=== PATIENT | female | born 1925 | race Caucasian/White ===

== ENCOUNTER 2016-08-02 12:08 | Emergency (ER) | payer MEDICARE, OTHER ==
[~2016-08-02] VITALS: Ht 167.6 cm; Wt 60.0 kg
[~2016-08-02 12:08] MED LIST: ATENOLOL25 MG OR; BACTRIM DS1 TAB PO; BAYER LOW81 MG OR; BUMETANIDE1 MG PO; CIPRO500 MG OR; ECOTRIN LOW STR81 MG PO; ECOTRIN325 MG OR; FLAGYL500 MG OR; FLEXERIL OR; KEFLEX500 M1 PO; MILK OF MAG30 ML/UDC PO; NITROFUR MAC100 MG OR; OS CAL OR; OS-CAL 500+D OR; OS-CAL 500500 MG OR; PROTONIX40 M2 PO; PROZAC20 MG OR; ULTRAM50 M1 PO; VANCOMYCIN1000 MG IV; VIGAMOX OU; XANAX0.5 MG OR
[2016-08-02] MEDS ORDERED: PANTOPRAZOLE SO40 MG PO (12:25)
[2016-08-02] MEDS ORDERED: OXYBUTYNIN5 M1 PO (12:25)
[2016-08-02] MEDS ORDERED: DOCUSATE CAL240 MG PO (12:26)
[2016-08-02] MEDS ORDERED: TRAZODONE50 MG PO (12:27)
[2016-08-02 13:16] LABS: HEMATOCRIT 37.8 % (37.0-47.0); HEMOGLOBIN 12.1 g/dl (12.0-16.0); IMMATURE GRANULOCYTES 0.2 % (0.0-1.0); MEAN CELL VOLUME 89.4 fL CALC (80.0-100.0); MEAN CORPUSCULAR HGB 28.6 pG CALC (26.0-32.0); NEUT# 3.67 thou/uL (2.00-7.15); RED BLOOD COUNT 4.23 mill/uL (4.20-5.60); RED CELL DISTRI WIDTH 13.9 % (11.5-15.5)
[2016-08-02 13:27] LABS: ALBUMIN 4.1 g/dL (3.2-5.0); ALKALINE PHOSPHATASE 52 u/l (38-126); ANION GAP 14 (6-22 (CALC)); BILIRUBIN, TOTAL 0.4 mg/dL (0.0-1.4); BUN 33 mg/dL (8-23); BUN/CREATININE RATIO 21 (12-20 (CALC)); CALCIUM 9.4 mg/dL (8.4-10.2); CARBON DIOXIDE 28 mmol/l (22-30); CHLORIDE 103 mmol/l (95-108); CREATININE 1.6 mg/dL (0.5-1.0); GFR 30 ML/MIN (>=60 (CALC)); GFR FOR AFR.AMER. 37 ML/MIN (>=60 (CALC)); GLUCOSE 93 mg/dL (82-115); POTASSIUM 4.8 mmol/l (3.5-5.1); SGOT/AST 29 u/l (9-36); SGPT/ALT 21 u/l (11-66); SODIUM 140 mmol/l (137-146); TOTAL PROTEIN 7.4 g/dL (6.3-8.2)
[2016-08-02 13:39] LABS: MYOGLOBIN 51 ng/mL (0 - 62)
[2016-08-02 14:56] VITALS: BP 168/78
== END 2016-08-02 15:03 | disposition left against medical advice (07) ==
LOC: ED 12:08 → ED-I 14:02 → ED 15:03
PROVIDERS: Emergency Medicine
DX: R06.02 Shortness of breath (principal); Z91.19 Patient's noncompliance with other medical treatment and regimen; R94.31 Abnormal electrocardiogram [ECG] [EKG]; I10 Essential (primary) hypertension